=== PATIENT | male | born 1960 | race American Indian/Alaskan Native ===

== ENCOUNTER 2018-11-24 21:30 | Emergency (ER) | payer MEDICARE ==
[2018-11-24 21:49] VITALS: O2SAT 100
--- NOTE | 2018-11-24 22:41 | C.PDOC ---
History Of Present Illness 58 y/o M p/w R hip pain and psychiatric evaluation. Patient reportedly called EMS and asked them to take him to [employer] [facility]. When informed this can not be done, he requested transport to the hospital for depressed thoughts. He also reports R hip pain since falling a few days ago. Denies any other pain. Denies HI or hallucinations. Time Seen by Provider: 11/24/18 22:02 Chief Complaint (Nursing): Hip Pain History Per: Patient, EMS History/Exam Limitations: no limitations Onset/Duration Of Symptoms: Days Current Symptoms Are (Timing): Still Present Recent travel outside of the [place]: No Additional History Per: Patient, EMS - Hip Description Of Injury: Other Past Medical History Reviewed: Historical Data, Nursing Documentation, Vital Signs Vital Signs: Last Vital Signs Temp 98.2 F 11/24/18 21:44 Pulse 87 11/24/18 21:44 Resp 20 11/24/18 21:44 BP 150/87 11/24/18 21:44 Pulse Ox 100 11/24/18 21:44 - Medical History PMH: HTN Surgical History: No Surg Hx Family History: States: Unknown Family Hx - Social History Hx Alcohol Use: Yes Hx Substance Use: Yes - Immunization History Hx Tetanus Toxoid Vaccination: No Hx Influenza Vaccination: No Hx Pneumococcal Vaccination: No Review Of Systems Except As Marked, All Systems Reviewed And Found Negative. Constitutional: Negative for: Fever Cardiovascular: Negative for: Chest Pain Physical Exam - Physical Exam Additional Physical Exam Comments: Constitutional: No acute distress. Drowsy. Head: Normocephalic. Atraumatic. Eyes: PERRL. ENT: Moist mucous membranes. Neck: Supple. Cardiovascular: Regular rate. Radial pulse 2+ bilaterally. Chest: No tenderness. Respiratory: Clear to auscultation bilaterally. GI: Soft. Nontender. Nondistended. Back: No CVA tenderness. Musculoskeletal: No tenderness or swelling of extremities. No hip tenderness. FROM x 4. Skin: No rash. Neurologic: Alert, no focal deficit. ED Course And Treatment - Laboratory Results Result Diagrams: 11/24/18 22:46 11/24/18 22:46 O2 Sat by Pulse Oximetry: 100 (ON RA) Pulse Ox Interpretation: Normal Medical Decision Making Medical Decision Making: Plan: * Labs * Right Hip X-Ray * UA XR negative for fracture. Evalutaed by Crisis, recommend discharge. Discharged home, f/u clinic/PMD, return to ED for worsening pain, fever, vomiting, depression, or any other problem. Disposition - Disposition Disposition: HOME/ ROUTINE Disposition Time: 23:32 Condition: STABLE Prescriptions: Ibuprofen [Motrin] 600 mg PO Q6 #25 tab Instructions: Hip Pointer Forms: [employer] ([place]ian) - Clinical Impression Clinical Impression: Hip pain - Scribe Statement The provider has reviewed the documentation as recorded by the Scribe Von Olivera All medical record entries made by the Scribe were at my direction and personally dictated by me. I have reviewed the chart and agree that the record accurately reflects my personal performance of the history, physical exam, medical decision making, and the department course for this patient. I have also personally directed, reviewed, and agree with the discharge instructions and disposition.
[2018-11-24 22:49] LABS: BASO # 0.1 K/uL (0.0-0.2); BASO % 0.7 % (0.0-2.0); EOS % 0.5 % (0.0-4.0); HEMOGLOBIN 13.2 g/dL (12.0-18.0); LYMPH # 1.1 K/uL (1.0-4.3); LYMPH % 10.5 % (20.0-40.0); MEAN CELL VOLUME 91.2 fL (80.0-94.0); MEAN CORPUSCULAR HEMOGLOBIN 29.3 pg (27.0-31.0); MEAN CORPUSCULAR HGB CONC 32.1 g/dL (33.0-37.0); MEAN PLATELET VOLUME 6.4 fL (7.2-11.7); MONO % 9.2 % (0.0-10.0); NEUT # 8.7 K/uL (1.8-7.0); NEUT % 79.1 % (50.0-75.0); NRBC % 0.1 % (0.0-2.0); RBC 4.5 Mil/uL (4.40-5.90); RED CELL DISTRIBUTION WIDTH 13.6 % (11.5-14.5)
[2018-11-24 22:59] LABS: URINE BACTERIA OCC (<OCC); URINE BILIRUBIN NEGATIVE (NEGATIVE); URINE BLOOD NEGATIVE (NEGATIVE); URINE CLARITY Clear (Clear); URINE COLOR Yellow (YELLOW); URINE GLUCOSE (UA) NORMAL (Normal); URINE LEUKOCYTE ESTERASE TRACE Leu/uL (Negative); URINE PROTEIN NEGATIVE (NEGATIVE)
[2018-11-24 23:01] LABS: ALB/GLOB RATIO 0.8 (1.0-2.1); ALBUMIN 2.7 g/dL (3.5-5.0); ALT/SGPT 37 U/L (21-72); AST/SGOT 45 U/L (17-59); BLOOD UREA NITROGEN 8 mg/dL (9-20); CALCIUM 8.5 mg/dl (8.6-10.4); GFR NON-AFRICAN AMERICAN > 60
[2018-11-24 23:13] LABS: BARBITURATES, UR NEGATIVE (NEGATIVE); BENZODIAZEPINES, UR NEGATIVE (NEGATIVE); OPIATES, UR NEGATIVE (NEGATIVE); PHENCYCLIDINE, UR NEGATIVE (NEGATIVE)
[2018-11-25 02:18] VITALS: BP 127/80; PULSE 88; RESP 16; TEMP 98.2
--- NOTE | 2018-11-25 13:56 | RAD ---
Date of service: 11/24/2018 PROCEDURE: AP pelvis and oblique view of the right hip HISTORY: hip pain, fall few days ago COMPARISON: No prior TECHNIQUE: AP and oblique views of the pelvis and right hip were obtained. FINDINGS: There is no evidence of acute fracture or dislocation. There are advanced osteoarthritic changes of the right hip noted. There are moderate osteoarthritic changes of the left hip. Severe narrowing of the disc is spaces noted. IMPRESSION: No evidence of acute fracture or dislocation. Advanced osteoarthritic changes of the right hip.
== END 2018-11-25 02:18 | disposition home or self-care (01) ==
LOC: C.ER 21:30
DX: M25.551 Pain in right hip (principal)
CPT/HCPCS: 73502; 80053; 81001; 83735; 84100; 85025; 96374; 99285; G0480; J1885